=== PATIENT | male | born 1980 | race Two or more races ===

== ENCOUNTER 2018-11-01 20:54 | Emergency (ER) | payer OTHER ==
[~2018-11-01] VITALS: Ht 165.1 cm; Wt 81.6 kg
[2018-11-01] MEDS ORDERED: SODIUM CHLORIDE 0.9% 1,000 ML IV ONE ×2 (21:24)
[2018-11-01] MEDS ORDERED: THIAMINE 100mg/ml INJ (200mg/2ml VIAL) IV ONE (21:30)
[2018-11-01 21:58] LABS: Basophils # (auto) 0.1 uL; Basophils % (auto) 0.8 % (0.0-2.0); Eosinophils # (auto) 0.1 uL; Eosinophils % (auto) 0.7 % (0.0-7.0); Hematocrit 50.3 % (41.0-53.0); Lymphocytes # (auto) 3.1 uL; Lymphocytes % (auto) 35.8 % (10.0-50.0); Mean Corpuscular Hemoglobin 31.5 pg (28.0-32.0); Mean Corpuscular Hgb Conc. 33.8 g/dL (32.0-36.0); Mean Corpuscular Volume 93.4 fL (80.0-100.0); Monocytes % (auto) 11.7 % (0.0-12.0); Neutrophils # (auto) 4.4 uL; Nucleated Red Blood Cells % 0.1 %; Platelet Count (auto) 313 10^3/uL (140-450); Red Blood Cells 5.38 10^6/uL (4.5-5.90); Red Cell Distribution Width 13.5 % (11.8-14.3); White Blood Cell 8.6 10^3/uL (4.4-10.8)
[2018-11-01 22:13] LABS: Albumin 3.8 g/dL (3.4-5.0); Anion Gap 10 (5-15); Blood Urea Nitrogen 9 mg/dL (7-18); Calcium 7.7 mg/dL (8.5-10.1); Carbon Dioxide 24 mmol/L (21-32); Chloride 108 mmol/L (98-107); Glucose 132 mg/dL (74-106); Potassium 3.7 mmol/L (3.5-5.1); Sodium 142 mmol/L (136-145)
[2018-11-01 22:21] LABS: Alanine Aminotransferase 32 U/L (16-61); Alkaline Phosphatase 80 U/L (45-117); Aspartate Aminotransferase 31 U/L (15-37); BUN/Creatinine Ratio 8.8; Bilirubin, Total 0.2 mg/dL (0.2-1.0); GFR African American 105 mL/min; GFR Non-African American 87 mL/min; Total Protein 7.9 g/dL (6.4-8.2)
[2018-11-01] MEDS ORDERED: ONDANSETRON HCL 4 MG/2 ML VIAL ONE (22:24)
[2018-11-01] MEDS ORDERED: ONDANSETRON HCL 4 MG/2 ML VIAL IV ONE (22:30)
[2018-11-02] MEDS ORDERED: SODIUM CHLORIDE 0.9% 1,000 ML IV ONE (03:30)
[2018-11-02 07:29] VITALS: BP 119/66
[2018-11-02 08:15] LABS: Urine Bacteria NONE SEEN /hpf (None Seen); Urine Blood Negative /uL (Negative); Urine Specific Gravity 1.017 (1.001-1.035); Urine WBC 1 /hpf (0 - 3)
[2018-11-02 08:25] LABS: Amphetamine Screen, Urine NEGATIVE (NEGATIVE); Barbiturate Scree,Urine NEGATIVE (NEGATIVE); Benzodiazephine Screen, Urine NEGATIVE (NEGATIVE); Cannabinoid Screen, Urine NEGATIVE (NEGATIVE); Cocaine Screen, Urine NEGATIVE (NEGATIVE); Opiate Scree,Urine NEGATIVE (NEGATIVE); Phencyclidine Screen, Urine NEGATIVE (NEGATIVE)
== END 2018-11-02 09:33 | disposition home or self-care (01) ==
LOC: EDBD 20:54 → ER 21:01
DX: S09.90XA Unspecified injury of head, initial encounter (principal); F10.920 Alcohol use, unspecified with intoxication, uncomplicated; J32.9 Chronic sinusitis, unspecified; Y90.0 Blood alcohol level of less than 20 mg/100 ml; V49.49XA Driver injured in collision with other motor vehicles in traffic accident, initial encounter; Y93.89 Activity, other specified; Y99.8 Other external cause status; Y92.410 Unspecified street and highway as the place of occurrence of the external cause
CPT/HCPCS: 36415; 70450; 71250; 72125; 73030; 74176; 80053; 80307; 80320; 81001; 84484; 85025; 93005; 94761; 96374; 96375; 99284; J2405; J3411

== ENCOUNTER 2025-07-16 06:52 | Inpatient (IN) | payer OTHER ==
[~2025-07-16] VITALS: Ht 167.6 cm; Wt 90.2 kg
[2025-07-16] MEDS: ADENOSINE 6 MG/2 ML INJ IV ONE (07:06)
--- NOTE | 2025-07-16 07:14 | ED.PDOC ---
HPI Comments 45-year-old male who presents to the ED with a chief complaint of palpitations onset today (07/16/25 )at 05:30. Patient states he woke up this morning experiencing palpitations, has experienced it in the past, is usually able to control symptoms on his own. He has a PMHx HTN, is not compliant with medication. Denies any fever, chills, shortness of breath, dizziness, abdominal pain, nausea, vomiting, diarrhea. No other symptoms or modifying factors present at this time. Time Seen by MD: 07:04 Reviewed Notes: Medications, Allergies Allergies: Coded Allergies: NO KNOWN ALLERGIES (Unverified , 11/01/18) Information Source: Patient Mode of Arrival: Ambulatory Severity: Moderate Timing: Hours Duration: Since onset Prehospital treatment: None Onset: At Rest Cardiac Risk Factors: HTN PE Risk Factors: None History of: None Modifying Factors: Nothing Associated Signs and Symptoms: Palpitations Past Medical History PAST MEDICAL HISTORY: HTN Surgical History: Denies all surgeries Family History Family History: Reviewed,noncontributory to illness, No family hx of Cancer, No family hx of DM, No family hx of Heart tommy, No family hx of HTN, No family hx ofKidney tommy, No family hx of Liver tommy, No family hx of Lung tommy, No family hx of Stroke Social History Smoker: Non-Smoker Alcohol: Denies ETOH Use Drugs: Denies Drug Use Lives In: Home Constitutional: denies: chills, diaphoresis, fatigue, fever, malaise, sweats, weakness, others EENTM: denies: blurred vision, double vision, ear bleeding, ear discharge, ear drainage, ear pain, ear ringing, eye pain, eye redness, hearing loss, mouth pain, mouth swelling, nasal discharge, nose bleeding, nose congestion, nose pain, photophobia, tearing, throat pain, throat swelling, voice changes, others Respiratory: denies: cough, hemoptysis, orthopnea, SOB at rest, shortness of breath, SOB with excertion, stridor, wheezing, others Cardiovascular: reports: palpitations; denies: chest pain, dizzy spells, diaphoresis, Dyspnea on exertion, edema, irregular heart beat, left arm pain, lightheadedness, PND, syncope, others Gastrointestinal: denies: abdomen distended, abdominal pain, blood streaked bowels, constipated, diarrhea, dysphagia, difficulty swallowing, hematemesis, melena, nausea, poor appetite, poor fluid intake, rectal bleeding, rectal pain, vomiting, others Genitourinary: denies: burning, dysuria, flank pain, frequency, hematuria, incontinence, penile discharge, penile sore, pain, testicle pain, testicle swelling, urgency, others Neurological: denies: dizziness, fainting, headache, left sided numbness, left sided weakness, numbness, paresthesia, pre-existing deficit, right sided numbness, right sided weakness, seizure, speech problems, tingling, tremors, weakness, others Musculoskeletal: denies: back pain, gout, joint pain, joint swelling, muscle pain, muscle stiffness, neck pain, others Integumetry: denies: bruises, change in color, change in hair/nails, dryness, laceration, lesions, lumps, rash, wounds, others Allergic/Immunocompromised: denies: Difficulty Healing, Frequent Infections, Hives, Itching, others Hematologic/Lymphatic: denies: anemia, blood clots, easy bleeding, easy bru ising, swollen glands, others Endocrine: denies: excessive hunger, excessive sweating, excessive thirst, e xcessive urination, flushing, intolerance to cold, intolerance to heat, unexplained weight gain, unexplained weight loss, others Psychiatric: denies: anxiety, bipolar disorder, depression, hopeless, panic disorder, schizophrenia, sleepless, suicidal, others All Other Systems: Reviewed and Negative Physical Exam General Appearance: Moderate Distress, Normal HEENT: Normal ENT Inspection, Pharynx Normal, TMs Normal Neck: Full Range of Motion, Non-Tender, Normal, Normal Inspection Respiratory: Chest Non-Tender, Lungs Clear, No Accessory Muscle Use, No Respiratory Distress, Normal Breath Sounds Cardiovascular: No Edema, No JVD, No Murmur, No Gallop, Normal Peripheral Pulses, Tachycardia Breast Exam: Deferred Gastrointestinal: No Organomegaly, Non Tender, No Pulsatile Mass, Normal Bowel Sounds, Soft Genitalia: Deferred Pelvic: Deferred Rectal: Deferred Extremities: No calf tenderness, Normal capillary refill, Normal inspection, Normal range of motion, Non-tender, No pedal edema Musculoskeletal : Apperance: Normal Neurologic: Alert, outfitter cabin II-XII nml as Tested, No Motor Deficits, Normal Affect, Normal Mood, No Sensory Deficits Cerebellar Function: Normal Reflexes: Normal Skin: Dry, Normal Color, Warm Peripheral Pulses: 3+ Radial (R), 3+ Radial (L) Lymphatic: No Adenopathy EKG EKG : Pulse Rate (adult): 227 Cardiac Rhythm: PSVT Was a procedure done? Was a procedure done?: No CP Differential Dx Differential Diagnosis: A-fib, A-Flutter, Angina, Anxiety / Panic Attack, Atrial Dysrhythmia, Electrolyte Disorder X-Ray, Labs, Meds, VS Vital Signs Date Time Temp Pulse Resp B/P (MAP) Pulse Ox O2 Delivery O2 Flow Rate FiO2 07/16/25 08:00 98.2 115 20 163/98 (119) 97 98.2 07/16/25 07:19 112 20 95 Room Air* 0 21 07/16/25 07:14 227 07/16/25 07:06 98.0 221 20 136/96 98 98.0 07/16/25 07:04 237 20 136/96 (109) 98 Lab Test 07/16/25 07:17 Range/Units White Blood Count 9.9 4.4-10.8 10^3/uL Red Blood Count 5.84 4.5-5.90 10^6/uL Hemoglobin 18.7 H 13.5-17.5 g/dL Hematocrit 53.8 H 41.0-53.0 % Mean Corpuscular Volume 92.2 80.0-100.0 fL Mean Corpuscular Hemoglobin 32.0 28.0-32.0 pg Mean Corpuscular Hemoglobin Concent 34.7 32.0-36.0 g/dL Red Cell Distribution Width 15.0 H 11.8-14.3 % Platelet Count 304 140-450 10^3/uL Mean Platelet Volume 7.2 6.9-10.8 fL Neutrophils (%) (Auto) 76.2 37.0-80.0 % Lymphocytes (%) (Auto) 15.0 10.0-50.0 % Monocytes (%) (Auto) 7.8 0.0-12.0 % Eosinophils (%) (Auto) 0.3 0.0-7.0 % Basophils (%) (Auto) 0.7 0.0-2.0 % Neutrophils # (Auto) 7.6 1.6-8.6 10 ^3/uL Lymphocytes # (Auto) 1.5 0.4-5.4 10 ^3/uL Monocytes # (Auto) 0.8 0-1.3 10 ^3/uL Eosinophils # (Auto) 0 0-0.8 10 ^3/uL Basophils # (Auto) 0.1 0-0.2 10 ^3/uL Nucleated Red Blood Cells 0.4 % Sodium Level 140 136-145 mmol/L Potassium Level 4.9 3.5-5.1 mmol/L Chloride Level 101 98-107 mmol/L Carbon Dioxide Level 26 20-31 mmol/L Anion Gap 13 5-15 Blood Urea Nitrogen 6 L 9-23 mg/dL Creatinine 1.38 H 0.700-1.30 mg/dL Glomerular Filtration Rate Calc 64 >90 mL/min BUN/Creatinine Ratio 4.3 L 10.0-20.0 Serum Glucose 121 H 74-106 mg/dL Calcium Level 9.7 8.7-10.4 mg/dL Troponin I High Sensitivity 12 </=54 ng/L Patient alert. Tachycardia. Ambulating. History of supraventricular tachycardia. He was able to convert without adenosine. He does get frequent supraventricular tachycardia. Was given morphine. Was given Zofran. EKG confirms supraventricular tachycardia. Cardiology consultation. Continue monitoring. [place] [id number] Ph: [phone] DIAGNOSTIC IMAGING Diagnostic Imaging Report : [id number] Signed PATIENT: DEZ CANALES ACCT: [id number] UNIT: [id number] : 1980 LOC: ER ROOM / BED: / AGE / SEX: 45 / M ADM STATUS: REG ER SERVICE 0714 ORDERING PHYSICIAN: TAB SILVEIRA MD PROCEDURE(s): CXRP - CHEST PORTABLE REASON: sob ORDER NUMBER(s): [id number], ACCESSION NUMBER(s): [id number] CLINICAL INFORMATION: Shortness of breath. TECHNIQUE: Single AP portable chest radiograph was obtained. COMPARISON: None FINDINGS: Lungs: Defibrillator pads overlie the left side of the chest, partially obscuring visualization. Given this limitation, no focal consolidation visualized. Likely atelectasis in the left lung base. Cardiac: Heart size is within normal limits. Pulmonary vasculature: Unremarkable. Mediastinum/pipo: Unremarkable. Bones: No acute osseous abnormality identified. Other: No other significant findings. IMPRESSION: No evidence of acute disease in the chest. ATED BY: DEZ PARKER DO DICTATED DATE/TIME: 07/16/25812 SIGNED BY: DEZ PARKER DO SIGNED DATE/TIME: 07/16/25812 CC: Time of 1ST Reevaluation: 07:34 Reevaluation 1ST: Unchanged Patient Education/Counseling: Diagnosis, Treatment, Prognosis Family Education/Counseling: No Family Present SEPSIS Sepsis Screen Physician Orders Chest Portable (07/16/25 07:14) Urinalysis (07/16/25 07:14) Troponin-I Hs (07/16/25 08:14) Troponin-I Hs (07/16/25 10:14) Vital Signs Date Time Temp Pulse Resp B/P (MAP) Pulse Ox O2 Delivery O2 Flow Rate FiO2 07/16/25 08:00 98.2 115 20 163/98 (119) 97 98.2 07/16/25 07:19 112 20 95 Room Air* 0 21 07/16/25 07:14 227 07/16/25 07:06 98.0 221 20 136/96 98 98.0 07/16/25 07:04 237 20 136/96 (109) 98 Laboratory Tests Test 07/16/25 07:17 White Blood Count 9.9 10^3/uL (4.4-10.8) Departure 1 Departure Time of Disposition: 07:21 Impression: Primary Impression: Supraventricular tachycardia Disposition: 09 ADMITTED INPATIENT Admit to: Med Surg Condition: Guarded Critical Care Note Critical Care Time?: No Stability Stability form required: No Heart Score Heart Score: Heart Score Response (Comments) Value History Slightly Suspicious 0 EKG Normal 0 Age <45 0 Risk Factors >3 or Hx ASHD 2 Troponin Normal limit 0 Total 2 I personally scribed for TAB SILVEIRA MD ([email or web address]) on 07/16/25 at 07:14. Electronically submitted by Kristen Allred ([email or web address]). I personally scribed for TAB SILVEIRA MD ([email or web address]) on 07/16/25 at 08:20. Electronically submitted by Kristen Allred ([email or web address]). TAB SILVEIRA MD Jul 16, 2025 07:14
[2025-07-16 07:19] VITALS: PULSE 112; RESP 20; O2SAT 95
[2025-07-16] MEDS: ONDANSETRON HCL 4 MG/2 ML VIAL IV ONE (07:40)
[2025-07-16] MEDS: MORPHINE SULFATE 4 MG/ML SYR/VIAL IV ONE (07:40)
[2025-07-16 07:45] LABS: Hemoglobin 18.7 g/dL (13.5-17.5)
[2025-07-16 07:48] LABS: Hematocrit 53.8 % (41.0-53.0); Mean Corpuscular Hemoglobin 32.0 pg (28.0-32.0); Mean Corpuscular Volume 92.2 fL (80.0-100.0); Nucleated Red Blood Cells % 0.4 %
[2025-07-16 07:57] LABS: Chloride 101 mmol/L (98-107); Potassium 4.9 mmol/L (3.5-5.1); Sodium 140 mmol/L (136-145)
[2025-07-16 07:58] LABS: Anion Gap 13 (5-15); Calcium 9.7 mg/dL (8.7-10.4); Carbon Dioxide 26 mmol/L (20-31)
[2025-07-16 08:03] LABS: BUN/Creatinine Ratio 4.3 (10.0-20.0)
[2025-07-16 08:05] LABS: Blood Urea Nitrogen 6 mg/dL (9-23); Glucose 121 mg/dL (74-106)
--- NOTE | 2025-07-16 08:16 | DVH ---
CLINICAL INFORMATION: Shortness of breath. TECHNIQUE: Single AP portable chest radiograph was obtained. COMPARISON: None FINDINGS: Lungs: Defibrillator pads overlie the left side of the chest, partially obscuring visualization. Give n this limitation, no focal consolidation visualized. Likely atelectasis in the left lung base. Cardiac: Heart size is within normal limits. Pulmonary vasculature: Unremarkable. Mediastinum/pipo: Unremarkable. Bones: No acute osseous abnormality identified. Other: No other significant findings. IMPRESSION: No evidence of acute disease in the chest.
--- NOTE | 2025-07-16 08:40 | ECG ---
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
--- NOTE | 2025-07-16 08:40 | ECG ---
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
[2025-07-16 09:39] VITALS: PULSE 108; RESP 14; O2SAT 94
--- NOTE | 2025-07-16 10:03 | ECG ---
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
[2025-07-16] MEDS: ENOXAPARIN SOD 100 MG/1 ML SYRINGE SC ONE (10:43)
[2025-07-16 13:00] LABS: Urine Protein, UAD Negative (Negative)
[2025-07-16] MEDS ORDERED: ACETAMINOPHEN 325 MG TAB PO PRN (14:30)
[2025-07-16] MEDS ORDERED: NITROGLYCERIN 0.4 MG SL TAB SL PRN (14:30)
[2025-07-16] MEDS ORDERED: MORPHINE SULFATE INJ 2 MG/ml SYRG IV PRN ×2 (14:30)
[2025-07-16] MEDS ORDERED: ONDANSETRON HCL 4 MG/2 ML VIAL IV PRN (14:30)
--- NOTE | 2025-07-16 15:45 | DVHHP2 ---
History of Present Illness Reason for Visit: Chest pain and palpitation which woke him up this morning. History of Present Illness 45-year-old male with a known history of hypertension, with a previous history of episode of SVT in the past when he was at the age of 20 and recent one episode couple of months ago, episodes used to resolve after rest for few minutes. Patient woke up this morning with the episodes of palpitations which lasted longer and eventually made him to come to ER. In the ER patient was SVT a more than 200. Before they give adenosine patient converted into normal sinus rhythm. Currently denies any chest pain palpitations. Cardiovascular: HTN Past Medical History History of SVT. Hypertension Smoke: No ALCOHOL: none Review of Systems Review of Systems Twelve review of system are negative besides mentioned above. Allergies: Coded Allergies: NO KNOWN ALLERGIES (Unverified , 11/01/18) Exam Vital Signs Vital Signs Date Time Temp Pulse Resp B/P (MAP) Pulse Ox O2 Delivery O2 Flow Rate FiO2 07/16/25 13:39 86 07/16/25 12:00 20 113/92 (99) 97 07/16/25 09:39 Room Air* 0 21 07/16/25 08:00 98.2 98.2 Exam HEENT pupils are reactive Neck is supple CV is S1-S2 regular rate and rhythm Respiratory are clear GI positive bowel sound Extremity no edema MEDICAL PATHOLOGIST no motor deficit Labs/Xrays Labs Test 07/16/25 12:04 07/16/25 10:20 07/16/25 07:17 Range/Units Urine Color Light-yellow Yellow Urine Clarity Clear Clear Urine pH 7.5 5.0-9.0 Urine Specific [place] 1.013 1.001-1.035 Urine Protein Negative Negative Urine Ketones Negative Negative Urine Blood Negative Negative /uL Urine Nitrite Negative Negative Urine Bilirubin Negative Negative Urine Urobilinogen Normal Negative mg/dL Urine Leukocyte Esterase Negative Negative /uL Urine RBC 1 0 - 3 /hpf Urine Microscopic WBC 2 0-3 /HPF Urine Squamous Epithelial Cells None seen <5 /hpf Urine Bacteria None seen None Seen /hpf Urine Glucose Normal Normal mg/dL Troponin I High Sensitivity 298 *H </=54 ng/L White Blood Count 9.9 4.4-10.8 10^3/uL Red Blood Count 5.84 4.5-5.90 10^6/uL Hemoglobin 18.7 H 13.5-17.5 g/dL Hematocrit 53.8 H 41.0-53.0 % Mean Corpuscular Volume 92.2 80.0-100.0 fL Mean Corpuscular Hemoglobin 32.0 28.0-32.0 pg Mean Corpuscular Hemoglobin Concent 34.7 32.0-36.0 g/dL Red Cell Distribution Width 15.0 H 11.8-14.3 % Platelet Count 304 140-450 10^3/uL Mean Platelet Volume 7.2 6.9-10.8 fL Neutrophils (%) (Auto) 76.2 37.0-80.0 % Lymphocytes (%) (Auto) 15.0 10.0-50.0 % Monocytes (%) (Auto) 7.8 0.0-12.0 % Eosinophils (%) (Auto) 0.3 0.0-7.0 % Basophils (%) (Auto) 0.7 0.0-2.0 % Neutrophils # (Auto) 7.6 1.6-8.6 10 ^3/uL Lymphocytes # (Auto) 1.5 0.4-5.4 10 ^3/uL Monocytes # (Auto) 0.8 0-1.3 10 ^3/uL Eosinophils # (Auto) 0 0-0.8 10 ^3/uL Basophils # (Auto) 0.1 0-0.2 10 ^3/uL Nucleated Red Blood Cells 0.4 % Sodium Level 140 136-145 mmol/L Potassium Level 4.9 3.5-5.1 mmol/L Chloride Level 101 98-107 mmol/L Carbon Dioxide Level 26 20-31 mmol/L Anion Gap 13 5-15 Blood Urea Nitrogen 6 L 9-23 mg/dL Creatinine 1.38 H 0.700-1.30 mg/dL Glomerular Filtration Rate Calc 64 >90 mL/min BUN/Creatinine Ratio 4.3 L 10.0-20.0 Serum Glucose 121 H 74-106 mg/dL Calcium Level 9.7 8.7-10.4 mg/dL SEPSIS Sepsis Screen Date sepsis recognized/suspect: Jul 16, 2025 Time Sepsis recognized/suspect: 942 Recent Procedure: No On Antibiotic Therapy: No Respiratory Rate >20: No Heart Rate >90: Yes Temp<36 C (96.8 F) or >38.3 C: No SBP <90 or MAP <65 mmHG: No New Acute Mental Status Change: No Is the patient on CPAP, BIPAP,: No Physician Orders Admit (07/16/25 14:21) Code Status (07/16/25 14:21) 2 Gm Sodium Diet (07/16/25 Dinner) Hydrocodone-Acet 5/325mg Tab ([place] 32 (07/16/25 14:30) Ondansetron Hcl (Zofran) (07/16/25 14:30) Enoxaparin Sodium (Lovenox) (07/17/25 10:00) Condition: Fair (07/16/25 14:21) Acetaminophen Tablet (Tylenol Tablet) (07/16/25 14:30) Morphine Sulfate Injection (07/16/25 14:30) Nitroglycerin Sublingual (Ntrostat Subli (07/16/25 14:30) Morphine Sulfate Injection (07/16/25 14:30) Stat Ekg For Chest Pain (07/16/25 14:21) Notify Md Of Changes From Base (07/16/25 14:21) Marketing Data Specialist For 24 Hours (07/16/25 14:21) Emergency Dysrhythmia Protocol (07/16/25 14:21) Rhythm Strips Once Every Shift (07/16/25 14:21) Oxygen By Nasal Cannula (07/16/25 14:21) * Cardiology Consult (07/16/25 14:21) Vital Signs Date Time Temp Pulse Resp B/P (MAP) Pulse Ox O2 Delivery O2 Flow Rate FiO2 07/16/25 13:39 86 07/16/25 12:00 111 20 113/92 (99) 97 07/16/25 10:02 91 07/16/25 10:00 95 20 133/86 (102) 97 07/16/25 09:39 108 14 94 Room Air* 0 21 07/16/25 09:32 106 07/16/25 08:31 107 07/16/25 08:00 98.2 115 20 163/98 (119) 97 98.2 Laboratory Tests Test 07/16/25 07:17 White Blood Count 9.9 10^3/uL (4.4-10.8) Medications Medications Dose Ordered Sig/Tamara Route Start Time Stop Time Status Last Admin Dose Admin Enoxaparin Sodium 90 mg ONCE ONCE SC 07/16/25 09:30 07/16/25 09:31 DC 07/16/25 10:43 90 MG Assessment/Plan Assessment/Plan 45-year-old male with a known history of hypertension, previous history of SVT presented to the hospital with a palpitation found to have 1.Supraventricular tachycardia converted to normal sinus rhythm 2. Palpitation secondary to 1. Resolved 3. Hypertension 4. Morbid obesity classI -tele admission, 2D echo cardiology consultation. -check TSH. Plan discussed with: Patient My Orders Orders - RUKHSANA AN MD Procedure Category Date Status Time Admit ADMIT 07/16/25 Transmitted 14:21 Code Status CODE 07/16/25 Transmitted 14:21 2 Gm Sodium Diet DIET 07/16/25 Transmitted Dinner Hydrocodone-Acet PHA 07/16/25 In Process 5/325mg Tab ([place] 14:30 Ondansetron Hcl PHA 07/16/25 In Process (Zofran) 14:30 Enoxaparin Sodium PHA 07/17/25 In Process (Lovenox) 10:00 Condition: Fair YANIRA 07/16/25 In Process 14:21 Acetaminophen Tablet PHA 07/16/25 In Process (Tylenol Tablet) 14:30 Morphine Sulfate PHA 07/16/25 In Process Injection 14:30 Nitroglycerin PHA 07/16/25 In Process Sublingual (Ntrostat 14:30 Morphine Sulfate PHA 07/16/25 In Process Injection 14:30 Stat Ekg For Chest YANIRA 07/16/25 In Process Pain 14:21 Notify Md Of Changes YANIRA 07/16/25 In Process From Base 14:21 Marketing Data Specialist For [facility] 07/16/25 In Process 24 Hours 14:21 Emergency Dysrhythmia YANIRA 07/16/25 In Process Protocol 14:21 Rhythm Strips Once YANIRA 07/16/25 In Process Every Shift 14:21 Oxygen By Nasal RT 07/16/25 Transmitted Cannula 14:21 * Cardiology Consult CONS 07/16/25 Transmitted 14:21 Problem List: (1) Supraventricular tachycardia Date of Service: Jul 16, 2025 Billing Provider: RUKHSANA AN MD Common Visit Codes: NOT BILLABLE RUKHSANA AN MD Jul 16, 2025 15:45
[2025-07-16 16:31] VITALS: RESP 18; O2SAT 98
[2025-07-16 17:00] VITALS: BP 150/107; PULSE 98; RESP 12; TEMP 98.6; O2SAT 96
[2025-07-16] MEDS ORDERED: LISI-275 PO (17:53)
[2025-07-16 20:00] VITALS: PULSE 97; RESP 16
[2025-07-16 20:54] VITALS: BP 145/97; PULSE 95; RESP 20; TEMP 99.3; O2SAT 94
[2025-07-17] VITALS (7 sets, daily range): BP systolic 141–171; BP diastolic 95–119; PULSE 79–92; RESP 18–20; TEMP 98–98.8; O2SAT 96–99
[2025-07-17] MEDS: ENOXAPARIN SOD 40 MG/0.4 ML SYRINGE SC SCH (10:17)
--- NOTE | 2025-07-17 11:25 | DVHINCON2 ---
Date Seen: Jul 17, 2025 Referring Physician MD Isha Reason for Consultation SVT History of Present Illness This is a pleasant 45-year-old man who presented to the emergency room with a chief complaint of palpitations on 07/16/2025. The patient reports he awoke in the morning and was brushing his teeth at the onset of symptoms. Complains of a sudden onset of palpitations associated with dizziness and a cough prompting his to drive him to the nearest emergency room. Upon arrival he underwent a 12 lead electrocardiogram revealing a supraventricular tachycardia rhythm at 223 bpm. The patient self converted into a sinus tachycardia rhythm without medical intervention. Complains of episodes of palpitations for the past 20 years but has never been diagnosed with a tachyarrhythmia neither he has been evaluated by recruiting internship or content specialist in the past. satellite project site monitor reviewed revealing a transition in between a sinus rhythm and transient sinus tachycardia with no further supraventricular tachycardia events. The patient reports drinking one cup of coffee per day, one energy drink approximately once monthly, denies the use of pre workout, denies the use of illicit drugs, admits to poor water intake. Only reports a medical history of hypertension on lisinopril therapy. Past Medical History Past medical history reviewed. No other significant than mentioned above. Past Surgical History Past surgical history reviewed. No other significant than mentioned above. Family History: Patient reports no known family medical history. Family History Family history reviewed. Denies family history of CV disease or tachyarrhythmias. Social History Denies any use of illicit drugs. Admits to occasional alcohol use. Denies any use of tobacco. Allergies: Coded Allergies: NO KNOWN ALLERGIES (Unverified , 11/01/18) Home Meds Reported Medications Lisinopril (Lisinopril) 5 Mg Tab, 5 MG PO DAILY for 30 Days, MG 07/16/25 Home Meds Home medications reviewed. Current Medications Current Medications Medications (Trade) Dose Ordered Sig/Tamara Route PRN Reason Start Time Stop Time Status Last Admin Acetaminophen/ Hydrocodone Bitart ([place] 5/325MG Tab) 1 tab Q4HP PRN PO MODERATE PAIN (4-6 PAIN SCALE) 07/16/25 14:30 Ondansetron HCl (Zofran) 4 mg Q4HP PRN IV NAUSEA / VOMITING 07/16/25 14:30 Enoxaparin Sodium (Lovenox) 40 mg DAILY SC 07/17/25 10:00 07/17/25 10:17 Acetaminophen (Tylenol Tablet) 650 mg Q6HP PRN PO PAIN SCALE 1-3 OR TEMP>100.4 07/16/25 14:30 Morphine Sulfate 2 mg Q4HPRN PRN IV SEVERE PAIN (7-10 PAIN SCALE) 07/16/25 14:30 Nitroglycerin (Ntrostat Sublingual) 0.4 mg Q5MINP PRN SL FOR CHEST PAIN 07/16/25 14:30 Morphine Sulfate 2 mg Q30M PRN IV FOR CHEST PAIN 07/16/25 14:30 Review of Systems Constitutional: No symptom reported Ears, Nose, & Throat: No symptom reported Eyes: No symptom reported Neurological: Dizziness Pulmonary/Respiratory: Cough Cardiovascular: Palpitations Gastrointestinal: No symptom reported Genitourinary: No symptom reported Musculoskeletal: No symptom reported Skin: No symptom reported Psychiatric: No symptom reported Endocrine: No symptom reported Hemotologic/Lymphatic: No symptom reported Vital Signs Vital Signs Date Time Temp Pulse Resp B/P (MAP) Pulse Ox O2 Delivery O2 Flow Rate FiO2 07/17/25 08:00 90 07/17/25 08:00 18 96 Room Air* 0 21 07/17/25 05:00 98.8 150/99 (116) 98.8 Physical Exam General Appearance: Cooperative. Well developed. Obese. In no acute distress Head Exam: Normal inspection Neck Exam: Normal inspection. Non-tender. Normal alignment Pulmonary/Respiratory: Chest non-tender. Clear bilateral breath sounds Cardiovascular/Chest: Regular rate and rhythm. S1, S2. NSR. No murmurs. No JVD. Peripheral Pulses: 2+ Radial (R). 2+ Radial (L). 2+ Pedal (R). 2+ Pedal (L) Abdominal Exam: Normal bowel sounds. Soft. Nontender. No hepatospenomegaly. No masses Ankle Exam: Negative ankle edema Lower extremities: Negative lower extremity edema Neuro/Mental Status: A&O x4. Coherent Thoughts/Psych: Normal thought pattern. Appropriate mood and affect. Good judgement and insight Appearance: In no acute distress Skin Exam: Normal inspection. Normal color. Warm. Dry Labs/Diagnostic Data Labs Test 07/16/25 12:04 07/16/25 10:20 07/16/25 07:17 Range/Units Urine Color Light-yellow Yellow Urine Clarity Clear Clear Urine pH 7.5 5.0-9.0 Urine Specific [place] 1.013 1.001-1.035 Urine Protein Negative Negative Urine Ketones Negative Negative Urine Blood Negative Negative /uL Urine Nitrite Negative Negative Urine Bilirubin Negative Negative Urine Urobilinogen Normal Negative mg/dL Urine Leukocyte Esterase Negative Negative /uL Urine RBC 1 0 - 3 /hpf Urine Microscopic WBC 2 0-3 /HPF Urine Squamous Epithelial Cells None seen <5 /hpf Urine Bacteria None seen None Seen /hpf Urine Glucose Normal Normal mg/dL Troponin I High Sensitivity 298 *H </=54 ng/L Thyroid Stimulating Hormone (TSH) 0.77 0.55-4.78 uIU/mL White Blood Count 9.9 4.4-10.8 10^3/uL Red Blood Count 5.84 4.5-5.90 10^6/uL Hemoglobin 18.7 H 13.5-17.5 g/dL Hematocrit 53.8 H 41.0-53.0 % Mean Corpuscular Volume 92.2 80.0-100.0 fL Mean Corpuscular Hemoglobin 32.0 28.0-32.0 pg Mean Corpuscular Hemoglobin Concent 34.7 32.0-36.0 g/dL Red Cell Distribution Width 15.0 H 11.8-14.3 % Platelet Count 304 140-450 10^3/uL Mean Platelet Volume 7.2 6.9-10.8 fL Neutrophils (%) (Auto) 76.2 37.0-80.0 % Lymphocytes (%) (Auto) 15.0 10.0-50.0 % Monocytes (%) (Auto) 7.8 0.0-12.0 % Eosinophils (%) (Auto) 0.3 0.0-7.0 % Basophils (%) (Auto) 0.7 0.0-2.0 % Neutrophils # (Auto) 7.6 1.6-8.6 10 ^3/uL Lymphocytes # (Auto) 1.5 0.4-5.4 10 ^3/uL Monocytes # (Auto) 0.8 0-1.3 10 ^3/uL Eosinophils # (Auto) 0 0-0.8 10 ^3/uL Basophils # (Auto) 0.1 0-0.2 10 ^3/uL Nucleated Red Blood Cells 0.4 % Sodium Level 140 136-145 mmol/L Potassium Level 4.9 3.5-5.1 mmol/L Chloride Level 101 98-107 mmol/L Carbon Dioxide Level 26 20-31 mmol/L Anion Gap 13 5-15 Blood Urea Nitrogen 6 L 9-23 mg/dL Creatinine 1.38 H 0.700-1.30 mg/dL Glomerular Filtration Rate Calc 64 >90 mL/min BUN/Creatinine Ratio 4.3 L 10.0-20.0 Serum Glucose 121 H 74-106 mg/dL Calcium Level 9.7 8.7-10.4 mg/dL Assessment Supraventricular tachycardia NSTEMI, likely type 2 secondary to above Rule out structural heart disease Acute dehydration Hypertension Obesity Plan/Recommendation (Dr. Arzola) The patient with newly diagnosed supraventricular tachycardia will undergo a transthoracic echocardiogram to evaluate cardiac function. SVT rhythm self converted without chemical intervention or medically advised vasovagal ma neuvers. In the meantime, initiate metoprolol XL, magnesium oxide, and IV fluids. Blood work has been ordered for today including a serial troponin level. Monitor ECG changes closely and notify. Strongly advised for an outpatient event monitor and to follow up with a primary recruiting internship or content specialist within 1-2 weeks post discharge. Thank you for allowing us to participate in this patient's care. Please call if you have any questions or concerns. This medical document was created using an electronic medical record system with voice recognition software and computerized dictation system. Although this document has been carefully reviewed, there might still be some phonetic and typographical errors. Occasional wrong-word or ``sound-alike substitutions may have occurred due to the inherent limitations of voice recognition software. These areas are purely typographical due to imperfections of the software programs and do not reflect any compromise in the patient's medical care. Please read the chart carefully and recognize, using context, where these substitutions have occurred. Plan discussed with: Patient, Other NYHA Physical activity limitations: NA Date of Service: Jul 17, 2025 Billing Provider: CHEO JOHNSON Cardiology Common Codes: 14647-[id number] INP/OBS CARE (High) CHEO JOHNSON Jul 17, 2025 11:25
[2025-07-17] MEDS: SODIUM CHLORIDE 0.9% 1,000 ML IV ONE (11:30)
[2025-07-17 12:12] LABS: Hematocrit 54.8 % (41.0-53.0); Hemoglobin 18.7 g/dL (13.5-17.5); Mean Corpuscular Hemoglobin 31.9 pg (28.0-32.0); Mean Corpuscular Volume 93.5 fL (80.0-100.0); Nucleated Red Blood Cells % 0.2 %
[2025-07-17 12:24] LABS: Albumin 4.6 g/dL (3.2-4.8); Alkaline Phosphatase 87 U/L (46-116); Anion Gap 9 (5-15); Calcium 10.1 mg/dL (8.7-10.4); Carbon Dioxide 27 mmol/L (20-31); Chloride 103 mmol/L (98-107); Glucose 93 mg/dL (74-106); Magnesium 2.2 mg/dL (1.6-2.6); Potassium 4.2 mmol/L (3.5-5.1); Sodium 139 mmol/L (136-145); Total Protein 8.0 g/dL (5.7-8.2)
[2025-07-17 12:25] LABS: Alanine Aminotransferase 46 U/L (7-40); BUN/Creatinine Ratio 4.5 (10.0-20.0); Bilirubin, Total 1.5 mg/dL (0.2-1.0); Blood Urea Nitrogen < 5 mg/dL (9-23)
[2025-07-17 12:37] LABS: HDL Cholesterol 59 mg/dL (40-59)
[2025-07-17 12:38] LABS: Cholesterol 244 mg/dL (< 200); Triglycerides 257 mg/dL (< 150)
[2025-07-17] MEDS: METOPROLOL SUCCINATE XL 50 MG TAB PO ONE (14:58)
[2025-07-17] MEDS: MAGNESIUM OXIDE 400 MG TAB PO ONE (14:58)
[2025-07-17] MEDS ORDERED: METO-6 PO (15:19)
[2025-07-17] MEDS ORDERED: ATOR40TA52 PO (15:19)
--- NOTE | 2025-07-17 15:20 | DVHDS2 ---
Discharge Summary Date of Admission Jul 16, 2025 at 14:21 Date of Discharge: Jul 17, 2025 Labs/Diagnostic Data: Laboratory Results Test 07/17/25 11:45 07/16/25 12:04 07/16/25 10:20 White Blood Count 8.3 10^3/uL (4.4-10.8) Red Blood Count 5.86 10^6/uL (4.5-5.90) Hemoglobin 18.7 g/dL (13.5-17.5) Hematocrit 54.8 % (41.0-53.0) Mean Corpuscular Volume 93.5 fL (80.0-100.0) Mean Corpuscular Hemoglobin 31.9 pg (28.0-32.0) Mean Corpuscular Hemoglobin Concent 34.1 g/dL (32.0-36.0) Red Cell Distribution Width 14.8 % (11.8-14.3) Platelet Count 281 10^3/uL (140-450) Mean Platelet Volume 7.3 fL (6.9-10.8) Neutrophils (%) (Auto) 74.3 % (37.0-80.0) Lymphocytes (%) (Auto) 14.3 % (10.0-50.0) Monocytes (%) (Auto) 9.8 % (0.0-12.0) Eosinophils (%) (Auto) 0.9 % (0.0-7.0) Basophils (%) (Auto) 0.7 % (0.0-2.0) Neutrophils # (Auto) 6.1 10 ^3/uL (1.6-8.6) Lymphocytes # (Auto) 1.2 10 ^3/uL (0.4-5.4) Monocytes # (Auto) 0.8 10 ^3/uL (0-1.3) Eosinophils # (Auto) 0.1 10 ^3/uL (0-0.8) Basophils # (Auto) 0.1 10 ^3/uL (0-0.2) Nucleated Red Blood Cells 0.2 % Sodium Level 139 mmol/L (136-145) Potassium Level 4.2 mmol/L (3.5-5.1) Chloride Level 103 mmol/L (98-107) Carbon Dioxide Level 27 mmol/L (20-31) Anion Gap 9 (5-15) Blood Urea Nitrogen < 5 mg/dL (9-23) Creatinine 1.11 mg/dL (0.700-1.30) Glomerular Filtration Rate Calc 83 mL/min (>90) BUN/Creatinine Ratio 4.5 (10.0-20.0) Serum Glucose 93 mg/dL (74-106) Hemoglobin A1c 5.6 % A1C (<5.7) Calcium Level 10.1 mg/dL (8.7-10.4) Magnesium Level 2.2 mg/dL (1.6-2.6) Total Bilirubin 1.5 mg/dL (0.2-1.0) Aspartate Amino Transferase (AST) 41 U/L (13-40) Alanine Aminotransferase (ALT) 46 U/L (7-40) Alkaline Phosphatase 87 U/L (46-116) Troponin I High Sensitivity 106 ng/L (</=54) Total Protein 8.0 g/dL (5.7-8.2) Albumin 4.6 g/dL (3.2-4.8) Triglycerides Level 257 mg/dL (< 150) Cholesterol Level 244 mg/dL (< 200) LDL Cholesterol 159 mg/dL (< 100) HDL Cholesterol 59 mg/dL (40-59) Urine Color Light-yellow (Yellow) Urine Clarity Clear (Clear) Urine pH 7.5 (5.0-9.0) Urine Specific [place] 1.013 (1.001-1.035) Urine Protein Negative (Negative) Urine Ketones Negative (Negative) Urine Blood Negative /uL (Negative) Urine Nitrite Negative (Negative) Urine Bilirubin Negative (Negative) Urine Urobilinogen Normal mg/dL (Negative) Urine Leukocyte Esterase Negative /uL (Negative) Urine RBC 1 /hpf (0 - 3) Urine Microscopic WBC 2 /HPF (0-3) Urine Squamous Epithelial Cells None seen /hpf (<5) Urine Bacteria None seen /hpf (None Seen) Urine Glucose Normal mg/dL (Normal) Thyroid Stimulating Hormone (TSH) 0.77 uIU/mL (0.55-4.78) Other Laboratory Tests 07/17/25 11:45 Brief Hx & Hospital Course: 45-year-old male with a known history of hypertension, previous history of SVT presented to the hospital with a palpitation found to have supraventricular tachycardia. Patient has converted to normal sinus rhythm without any vagal maneuver or chemical conversion. Patient was started on beta walter. Patient's blood pressure was uncontrolled eventually lisinopril dose was increased. Patient is currently stable to be discharged with a close follow up as an outpatient with the PCP and Cardiology. Diet weight reduction and exercise counseling for morbid obesity class one. Condition at Discharge: Stable Final Diagnosis/Problems List 45-year-old male with a known history of hypertension, previous history of SVT presented to the hospital with a palpitation found to have 1.Supraventricular tachycardia converted to normal sinus rhythm 2. Palpitation secondary to 1. Resolved 3. Hypertension 4. Morbid obesity classI -tele admission, 2D echo cardiology consultation. -check TSH. Discharge Disposition: Home SNF Discharge Will this Physician continue t: No Discharge Instruct/Medications Diet: Cardiac 2g Na,low cholest Activity: No Restrictions, As Tolerated Follow Up/Referral: Follow up with the PCP in 1-2 weeks Follow up with the Cardiology in one week. Medications: As prescribed and reconciled. New Medications: Atorvastatin Calcium (Atorvastatin Calcium) 40 Mg Tab 1 TAB PO DAILY, #30 TAB 5 Refills Lisinopril (Lisinopril) 5 Mg Tab 10 MG PO DAILY for 30 Days, #60 TAB Metoprolol Succinate (Toprol Xl) 50 Mg Tab 50 MG PO DAILY, #30 TAB Discontinued Medications: Lisinopril (Lisinopril) 5 Mg Tab 5 MG PO DAILY for 30 Days, MG Scheduled Atorvastatin Calcium (Atorvastatin Calcium), 1 TAB PO DAILY Lisinopril (Lisinopril), 10 MG PO DAILY Metoprolol Succinate (Toprol Xl), 50 MG PO DAILY Discontinued Medications Lisinopril (Lisinopril), 5 MG PO DAILY, (Reported) Discharge Statement: "Patient was advised to return to the ER or call 911 if any headaches, dizziness, shortness of breath, chest pain, abdominal pain, bleeding, fevers, or worsening of medical condition. Patient was counseled about treatment plan, medications, possible side effects, patientverbalized understanding. All questions were answered to the best of my ability. This discharge took greater then 30 minutes in planning, reviewing documentation, counseling the patient, and discussing with other team members." ASSESSMENT ASSESSMENT Assessment 45-year-old male with a known history of hypertension, previous history of SVT presented to the hospital with a palpitation found to have 1.Supraventricular tachycardia converted to normal sinus rhythm 2. Palpitation secondary to 1. Resolved 3. Hypertension 4. Morbid obesity classI -tele admission, 2D echo cardiology consultation. -check TSH. Date of Service: Jul 17, 2025 Billing Provider: RUKHSANA AN MD Common Visit Codes: NOT BILLABLE RUKHSANA AN MD Jul 17, 2025 15:20
[2025-07-17] MEDS ORDERED: LISI-275 PO (16:42)
[2025-07-17] MEDS: LISINOPRIL 5 MG TAB PO ONE (16:54)
[2025-07-17] MEDS: HYDROcodone-ACET 5/325MG TAB PO PRN (16:54)
[2025-07-17] MEDS ORDERED: ATORVASTATIN 20 MG TAB PO SCH (22:00)
--- NOTE | 2025-07-18 07:28 | DVHSR ---
APPROVED REPORT EXAM: Two-dimensional and M-mode echocardiogram with Doppler and color Doppler. Blood Pressure: 113/92 mmHg INDICATION SVT RISK FACTORS Height: 66, Weight: 198 DIMENSIONS LVDd4.7 (3.8-5.7cm)LA (2D)3.6 (1.9-4.0cm)Aortic Root3.7 (2.0-3.7cm) LVDs3.3 (2.5-4.0cm)LA (MM) (1.9-4.0cm)Aortic Cusp Exc1.9 (1.5-2.0cm) EF (%) 56.0 (55-70%)Rt. Atrium (1.9-4.0cm)Asc. Aorta cm Mitral Valve MitralMitral Stenosis E wave0.69m/sMV Mean GR.mmHg A wave0.59m/sMV Peak GR.mmHg E/A ratio1.22D MVAcm2 DECEL [id number] 1/2 [id number] IVRTmsDop MVA5.06cm2 Aortic Valve Aortic ValveAortic Stenosis V11.07m/Kina Mean GR.3mmHg V21.11m/Kina Peak GR.5mmHg LVOT Diameter2.1 (1.8-2.4cm)Doppler AVA3.34cm2 Pulmonic Valve V20.76m/s Other Information Technically limited study due to body habitus. Conclusion lvef 55% borderline lvh normal atria RV not well seen no severe valve abnormality noted
[2025-07-18] MEDS ORDERED: METOPROLOL SUCCINATE XL 50 MG TAB PO SCH (10:00)
[2025-07-18] MEDS ORDERED: MAGNESIUM OXIDE 400 MG TAB PO SCH (10:00)
--- NOTE | 2025-07-18 19:22 | DVHINCON2 ---
Date Seen: Jul 17, 2025 Referring Physician MD Isha Reason for Consultation SVT History of Present Illness This is a 45-year-old male with a PMH of hypertension on lisinopril therapy who presented to the ED with a complaint of palpitations on 07/16/2025. The patient reports he awoke in the morning and was brushing his teeth at the onset of symptoms. Complains of a sudden onset of palpitations associated with dizziness and a cough prompting his to drive him to the nearest emergency room. Upon arrival he underwent a 12 lead electrocardiogram revealing a supraventricular tachycardia rhythm at 223 bpm. The patient self converted into a sinus tachycardia rhythm without medical intervention. Complains of episodes of palpitations for the past 20 years but has never been diagnosed with a tachyarrh ythmia neither he has been evaluated by business strategist or workforce development specialist in the past. phototypesetting equipment monitor reviewed revealing a transition in between a sinus rhythm and transient sinus tachycardia with no further supraventricular tachycardia events. The patient reports drinking one cup of coffee per day, one energy drink approximately once monthly, denies the use of pre workout, denies the use of illicit drugs, admits to poor water intake. Patient was admitted to the hospital. I am asked to consult on this patient. Past Medical History Past medical history reviewed. No other significant than mentioned above. Past Surgical History Past surgical history reviewed. No other significant than mentioned above. Family History: Patient reports no known family medical history. Allergies: Coded Allergies: NO KNOWN ALLERGIES (Unverified , 11/01/18) Home Meds Active Scripts Lisinopril (Lisinopril) 5 Mg Tab, 10 MG PO DAILY for 30 Days, #60 TAB Prov:RUKHSANA AN MD 07/17/25 Metoprolol Succinate (Toprol Xl) 50 Mg Tab, 50 MG PO DAILY, #30 TAB Prov:RUKHSANA AN MD 07/17/25 Atorvastatin Calcium (ATORVASTATIN CALCIUM) 40 Mg Tab, 1 TAB PO DAILY, #30 TAB 5 Refills Prov:RUKHSANA AN MD 07/17/25 Discontinued Reported Medications Lisinopril (Lisinopril) 5 Mg Tab, 5 MG PO DAILY for 30 Days, MG 07/16/25 Current Medications Current Medications Medications (Trade) Dose Ordered Sig/Tamara Route PRN Reason Start Time Stop Time Status Last Admin Metoprolol Succinate (Toprol Xl) 50 mg DAILY PO 07/18/25 10:00 07/17/25 19:00 DC Magnesium Oxide (Mag-Ox Tablet) 400 mg DAILY PO 07/18/25 10:00 07/17/25 19:00 DC Atorvastatin Calcium (Lipitor) 40 mg HS PO 07/17/25 22:00 07/17/25 19:00 DC Review of Systems Constitutional: No symptom reported Ears, Nose, & Throat: No symptom reported Eyes: No symptom reported Neurological: Dizziness Pulmonary/Respiratory: Cough Cardiovascular: Palpitations Gastrointestinal: No symptom reported Genitourinary: No symptom reported Musculoskeletal: No symptom reported Skin: No symptom reported Psychiatric: No symptom reported Endocrine: No symptom reported Hemotologic/Lymphatic: No symptom reported Vital Signs Vital Signs Date Time Temp Pulse Resp B/P (MAP) Pulse Ox O2 Delivery O2 Flow Rate FiO2 07/17/25 17:13 82 07/17/25 16:54 171/119 07/17/25 16:37 98.0 18 97 98.0 07/17/25 08:00 Room Air* 0 21 Physical Exam GENERAL: Alert and oriented x 3. No acute distress. EYES: PERRL, EOMI. Anicteric. HENT: Moist mucous membranes. LUNGS: Clear to auscultation bilaterally. CARDIOVASCULAR: Regular rate and rhythm. ABDOMEN: Soft, non-tender and non-distended. EXTREMITIES: No edema. NEUROLOGIC: No focal neurological deficits. SKIN: Warm, dry. Labs/Diagnostic Data Labs Test 07/17/25 11:45 07/16/25 12:04 07/16/25 10:20 Range/Units White Blood Count 8.3 4.4-10.8 10^3/uL Red Blood Count 5.86 4.5-5.90 10^6/uL Hemoglobin 18.7 H 13.5-17.5 g/dL Hematocrit 54.8 H 41.0-53.0 % Mean Corpuscular Volume 93.5 80.0-100.0 fL Mean Corpuscular Hemoglobin 31.9 28.0-32.0 pg Mean Corpuscular Hemoglobin Concent 34.1 32.0-36.0 g/dL Red Cell Distribution Width 14.8 H 11.8-14.3 % Platelet Count 281 140-450 10^3/uL Mean Platelet Volume 7.3 6.9-10.8 fL Neutrophils (%) (Auto) 74.3 37.0-80.0 % Lymphocytes (%) (Auto) 14.3 10.0-50.0 % Monocytes (%) (Auto) 9.8 0.0-12.0 % Eosinophils (%) (Auto) 0.9 0.0-7.0 % Basophils (%) (Auto) 0.7 0.0-2.0 % Neutrophils # (Auto) 6.1 1.6-8.6 10 ^3/uL Lymphocytes # (Auto) 1.2 0.4-5.4 10 ^3/uL Monocytes # (Auto) 0.8 0-1.3 10 ^3/uL Eosinophils # (Auto) 0.1 0-0.8 10 ^3/uL Basophils # (Auto) 0.1 0-0.2 10 ^3/uL Nucleated Red Blood Cells 0.2 % Sodium Level 139 136-145 mmol/L Potassium Level 4.2 3.5-5.1 mmol/L Chloride Level 103 98-107 mmol/L Carbon Dioxide Level 27 20-31 mmol/L Anion Gap 9 5-15 Blood Urea Nitrogen < 5 L 9-23 mg/dL Creatinine 1.11 0.700-1.30 mg/dL Glomerular Filtration Rate Calc 83 >90 mL/min BUN/Creatinine Ratio 4.5 L 10.0-20.0 Serum Glucose 93 74-106 mg/dL Hemoglobin A1c 5.6 <5.7 % A1C Calcium Level 10.1 8.7-10.4 mg/dL Magnesium Level 2.2 1.6-2.6 mg/dL Total Bilirubin 1.5 H 0.2-1.0 mg/dL Aspartate Amino Transferase (AST) 41 H 13-40 U/L Alanine Aminotransferase (ALT) 46 H 7-40 U/L Alkaline Phosphatase 87 46-116 U/L Troponin I High Sensitivity 106 *H </=54 ng/L Total Protein 8.0 5.7-8.2 g/dL Albumin 4.6 3.2-4.8 g/dL Triglycerides Level 257 H < 150 mg/dL Cholesterol Level 244 H < 200 mg/dL LDL Cholesterol 159 H < 100 mg/dL HDL Cholesterol 59 40-59 mg/dL Urine Color Light-yellow Yellow Urine Clarity Clear Clear Urine pH 7.5 5.0-9.0 Urine Specific [employer] 1.013 1.001-1.035 Urine Protein Negative Negative Urine Ketones Negative Negative Urine Blood Negative Negative /uL Urine Nitrite Negative Negative Urine Bilirubin Negative Negative Urine Urobilinogen Normal Negative mg/dL Urine Leukocyte Esterase Negative Negative /uL Urine RBC 1 0 - 3 /hpf Urine Microscopic WBC 2 0-3 /HPF Urine Squamous Epithelial Cells None seen <5 /hpf Urine Bacteria None seen None Seen /hpf Urine Glucose Normal Normal mg/dL Thyroid Stimulating Hormone (TSH) 0.77 0.55-4.78 uIU/mL Assessment Supraventricular tachycardia. NSTEMI, likely type 2 secondary to above. Rule out structural heart disease. Acute dehydration. Hypertension. Obesity. Plan/Recommendation I agree with your ongoing assessment and care of plan. Patient has been seen by Yulissa Scott NP on my behalf. We have discussed the plan with the patient. The patient with newly diagnosed supraventricular tachycardia will undergo a transthoracic echocardiogram to evaluate cardiac function. SVT rhythm self converted without chemical intervention or medically advised vasovagal maneuvers. In the meantime, initiate metoprolol XL, magnesium oxide, and IV fluids. Blood work has been ordered for today including a serial troponin level. Monitor ECG changes closely and notify. Strongly advised for an outpatient event monitor and to follow up with a primary business strategist or workforce development specialist within 1-2 weeks post discharge. Additional plan as per the hospital course. Plan discussed with: Patient NYHA Physical activity limitations: NA Date of Service: Jul 17, 2025 Billing Provider: AIJT KINGSTON MD Cardiology Common Codes: 27716-EODIPPQ INP/OBS CARE (High) Cardiology Consultation Codes: 22474-[id number] CONSULT <45MIN AJIT KINGSTON MD Jul 18, 2025 19:22
== END 2025-07-17 18:10 | disposition home or self-care (01) | DRG 282 ==
LOC: ER 06:52 → OVERFLOW 14:21 → TELE-WESTW 16:15
PROVIDERS: ADMIT Internal Medicine; ATTEND Internal Medicine
DX: I47.10 Supraventricular tachycardia, unspecified (principal); I21.A1 Myocardial infarction type 2; E66.01 Morbid (severe) obesity due to excess calories; I10 Essential (primary) hypertension; E86.0 Dehydration; Z79.899 Other long term (current) drug therapy; Z68.32 Body mass index [BMI] 32.0-32.9, adult
CPT/HCPCS: 36415; 71045; 80048; 80053; 80061; 81001; 83036; 83735; 84443; 84484; 85025; 93005; 93306; 96372; G0378